=== PATIENT | male | born 1985 | race American Indian/Alaskan Native ===

== ENCOUNTER 2019-04-14 19:27 | Emergency (ER) | payer SELFPAY ==
--- NOTE | 2019-04-14 20:07 | Emergency Department Report ---
Blank Doc - Documentation Documentation: 33-year-old male that presents with right sided lower back pain. Denies any i njuries. Stated has vomiting and body aches. This initial assessment/diagnostic orders/clinical plan/treatment(s) is/are subject to change based on patient's health status, clinical progression and re- assessment by fellow clinical providers in the ED. Further treatment and workup at subsequent clinical providers discretion. Patient/guardians urged not to elope from the ED as their condition may be serious if not clinically assessed and managed. Initial orders include: 1- Patient sent to [facility] for further evaluation and treatment 2- labs 3- UA
[2019-04-14 20:53] LABS: Basophils % (Auto) 0.1 % (0.0-1.8); Lymphocytes # (Auto) 0.9 K/mm3 (1.2-5.4); Lymphocytes % (Auto) 6.1 % (13.4-35.0); Mean Corpuscular HGB Conc 34 % (32-34); Mean Corpuscular Volume 82 fl (84-94); Monocytes # (Auto) 0.9 K/mm3 (0.0-0.8); Monocytes % (Auto) 6.3 % (0.0-7.3); Platelet Count 218 K/mm3 (140-440); Red Cell Distribution Width 14.9 % (13.2-15.2)
[2019-04-14 21:00] LABS: Bilirubin,Urine NEG (Negative); Blood,Urine MOD (Negative); Color,Urine Yellow (Yellow); Mucus,Urine FEW /HPF
[2019-04-14 21:15] LABS: Alanine Aminotransferase 24 units/L (7-56); Albumin 3.5 g/dL (3.9-5); BUN/Creatinine Ratio 11; Blood Urea Nitrogen 10 mg/dL (9-20); Hemolysis Index 7
[2019-04-15] MEDS ORDERED: SODIUM CHLORIDE 0.9% 1000 ML 1,000 ML IV ONE (01:03)
[2019-04-15] MEDS ORDERED: KETOROLAC 30 MG/1 ML INJ IV ONE (01:03)
[2019-04-15] MEDS ORDERED: ONDANSETRON 4 MG/2 ML INJ IV ONE (01:03)
[2019-04-15] MEDS ORDERED: MORPHINE 4 MG/1 ML INJ IV ONE (01:24)
[2019-04-15] MEDS ORDERED: MORPHINE 4 MG/1 ML INJ ONE (01:26)
--- NOTE | 2019-04-15 03:06 | Emergency Department Report ---
ED Abdominal Pain HPI - General Chief Complaint: Back Pain/Injury Stated Complaint: SEVERE BACK PAIN Time Seen by Provider: 04/14/19 20:06 Source: patient Mode of arrival: Wheelchair Limitations: No Limitations - History of Present Illness Initial Comments: Mr. Orr presents for right flank pain , x 3 days described as aching constant with bodyaches nausea fever chills. symptoms are exacerbated by activity, symptoms are relieved by nothing tried. MD Complaint: flank pain Onset/Timin -: days(s) Location: R flank Radiation: R flank Migration to: no migration Severity scale (0 -10): 4 Quality: aching Consistency: constant Improves With: nothing Worsens With: movement Associated Symptoms: nausea - Related Data Previous Rx's Medication Instructions Recorded Last Taken Type levoFLOXacin [Levaquin TAB] 500 mg PO QDAY #10 tablet 04/15/19 Unknown Rx traMADoL [Ultram] 50 mg PO Q6HR PRN #12 tablet 04/15/19 Unknown Rx Allergies Allergy/AdvReac Type Severity Reaction Status Date / Time No Known Allergies Allergy Unverified 04/14/19 20:03 ED Review of Systems ROS: Stated complaint: SEVERE BACK PAIN Other details as noted in HPI Constitutional: denies: chills, fever Eyes: denies: eye pain, eye discharge, vision change ENT: denies: ear pain, throat pain Respiratory: denies: cough, shortness of breath, wheezing Cardiovascular: denies: chest pain, palpitations Endocrine: no symptoms reported Gastrointestinal: denies: abdominal pain, nausea, diarrhea Genitourinary: denies: urgency, dysuria Musculoskeletal: back pain. denies: joint swelling, arthralgia Skin: denies: rash, lesions Neurological: denies: headache, weakness, paresthesias Psychiatric: denies: anxiety, depression Hematological/Lymphatic: denies: easy bleeding, easy bruising ED Past Medical Hx - Past Medical History Previous Medical History?: No - Surgical History Past Surgical History?: No - Social History Smoking Status: Current Every Day Smoker Substance Use Type: Marijuana - Medications Home Medications: Home Medications Medication Instructions Recorded Confirmed Last Taken Type levoFLOXacin [Levaquin TAB] 500 mg PO QDAY #10 tablet 04/15/19 Unknown Rx traMADoL [Ultram] 50 mg PO Q6HR PRN #12 tablet 04/15/19 Unknown Rx ED Physical Exam - General Limitations: No Limitations General appearance: alert, in no apparent distress - Head Head exam: Present: atraumatic, normocephalic - Eye Eye exam: Present: normal appearance, PERRL, EOMI Pupils: Present: normal accommodation - ENT ENT exam: Present: normal orophraynx, mucous membranes moist - Neck Neck exam: Present: normal inspection, full ROM - Respiratory Respiratory exam: Present: normal lung sounds bilaterally. Absent: respiratory distress, wheezes, stridor, chest wall tenderness - Cardiovascular Cardiovascular Exam: Present: regular rate, normal rhythm, normal heart sounds. Absent: systolic murmur, diastolic murmur, rubs, gallop - GI/Abdominal GI/Abdominal exam: Present: soft, normal bowel sounds. Absent: distended, tenderness, bruit, hernia - Rectal Rectal exam: Present: deferred - Extremities Exam Extremities exam: Present: normal inspection, full ROM, normal capillary refill. Absent: tenderness - Back Exam Back exam: Present: normal inspection, full ROM, tenderness, CVA tenderness (R). Absent: CVA tenderness (L), vertebral tenderness, rash noted - Expanded Back Exam Expanded Back exam: Absent: saddle anesthesia Back exam: Negative Straight Leg Raising: Left, Right - Neurological Exam Neurological exam: Present: alert, oriented X3, CN II-XII intact, normal gait, reflexes normal - Psychiatric Psychiatric exam: Present: normal affect, normal mood - Skin Skin exam: Present: warm, dry, intact, normal color. Absent: rash ED Course Vital Signs 04/14/19 19:59 Temperature 97.6 F Pulse Rate 95 H Respiratory 20 Rate Blood Pressure 114/65 O2 Sat by Pulse 97 Oximetry ED Medical Decision Making - Lab Data Result diagrams: 04/14/19 20:30 04/14/19 20:30 Labs 04/14/19 04/14/19 04/14/19 20:30 20:30 20:31 WBC 14.2 H RBC 5.00 Hgb 14.0 Hct 41.0 MCV 82 L MCH 28 MCHC 34 RDW 14.9 Plt Count 218 Lymph % (Auto) 6.1 L [place] % (Auto) 6.3 Eos % (Auto) 0.0 Baso % (Auto) 0.1 Lymph # 0.9 L [place] # 0.9 H Eos # 0.0 Baso # 0.0 Seg Neutrophils % 87.5 H Seg Neutrophils # 12.5 H Sodium 135 L Potassium 4.2 Chloride 97.5 L Carbon Dioxide 21 L Anion Gap 21 BUN 10 Creatinine 0.9 Estimated GFR > 60 BUN/Creatinine Ratio 11 Glucose 131 H Calcium 9.0 Total Bilirubin 0.30 AST 26 ALT 24 Alkaline Phosphatase 79 Total Protein 7.1 Albumin 3.5 L Albumin/Globulin Ratio 1.0 Urine Color Yellow Urine Turbidity Clear Urine pH 7.0 Ur Specific [place] 1.017 Urine Protein 30 mg/dl Urine Glucose (UA) 150 Urine Ketones 20 Urine Blood Mod Urine Nitrite Neg Urine Bilirubin Neg Urine Urobilinogen 4.0 Ur Leukocyte Esterase Neg Urine WBC (Auto) 1.0 Urine RBC (Auto) 21.0 U Epithel Cells (Auto) < 1.0 Urine Mucus Few - Radiology Data Radiology results: report reviewed, image reviewed pt decline CT abd pelvis, plan: levaquin po dailys x 10 days, ultram, follow up with urology in 2-3 days. - Medical Decision Making Pain is improved CT no renal stone no abnormality plan Levaquin by mouth daily , Ultram when necessary painn follow up with urology, patient given referral to same, return to emergency department should symptoms worsen. Patient verbalizes agreement and understanding with discharge plan Critical care attestation.: If time is entered above; I have spent that time in minutes in the direct care of this critically ill patient, excluding procedure time. ED Disposition Clinical Impression: Flank pain UTI (urinary tract infection) Qualifiers: Urinary tract infection type: acute cystitis Hematuria presence: without hematuria Qualified Code(s): N30.00 - Acute cystitis without hematuria Disposition: TO HOME OR SELFCARE Is pt being admited?: No Does the pt Need Aspirin: No Condition: Stable Instructions: Urinary Tract Infection in Men (ED), Flank Pain (ED) Prescriptions: levoFLOXacin [Levaquin TAB] 500 mg PO QDAY #10 tablet traMADoL [Ultram] 50 mg PO Q6HR PRN #12 tablet PRN Reason: Pain Referrals: HILDA KNOWLES MD [Staff Physician] - 3-5 Days Forms: Work/School Release Form(ED) Time of Disposition: 04:09
--- NOTE | 2019-04-15 04:02 | Cat Scan Report ---
CT of the abdomen and pelvis without contrast INDICATION: Right flank pain COMPARISON: None FINDINGS: There is minimal right basilar atelectasis. The liver, spleen, pancreas, adrenal glands and kidneys appear normal. No definite gallbladder or biliary tree abnormality. No fluid or adenopathy i n the upper abdomen. CT of the pelvis shows a normal appendix. No ureteral stones are seen. No stone fragments seen in the bladder. Prostate is not enlarged. No pelvic fluid or adenopathy. No hernia or bowel obstruction. No significant skeletal lesion. IMPRESSION: Negative study. No kidney stone or appendicitis. Automated exposure control was utilized to diminish radiation dose. Signer Name: Geoffrey Perry MD Signed: 04/15/2019 3:57 AM Workstation Name: [id number]
[2019-04-15 04:26] VITALS: BP 119/57
== END 2019-04-15 04:25 | disposition home or self-care (01) ==
LOC: ED 19:27
DX: N39.0 Urinary tract infection, site not specified (principal); F17.200 Nicotine dependence, unspecified, uncomplicated; F12.10 Cannabis abuse, uncomplicated
CPT/HCPCS: 36415; 74176; 80053; 81001; 85025; 87086; 96361; 96374; 96375; 99284; J1885; J2270; J2405; J7030